=== PATIENT | male | born 1980 | race Caucasian/White ===

== ENCOUNTER 2018-10-28 11:05 | Emergency (ER) | payer SELFPAY ==
[~2018-10-28] VITALS: Ht 185.4 cm; Wt 79.0 kg
[~2018-10-28 11:05] MED LIST: DIPH25CA6; HYDR28CR36
[2018-10-28 11:09] VITALS: BP 175/63; PULSE 102; RESP 18; Ht 185.4 cm; Wt 79.0 kg
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
[2018-10-28] MEDS ORDERED: IBUPROFEN 800 MG TAB PO ONE (13:30)
[2018-10-28] MEDS ORDERED: IBUP-1542 PO (15:28)
== END 2018-10-28 16:02 | disposition home or self-care (01) ==
LOC: FTE 11:05
DX: S80.212A Abrasion, left knee, initial encounter (principal); F17.210 Nicotine dependence, cigarettes, uncomplicated; S60.512A Abrasion of left hand, initial encounter; V13.4XXA Pedal cycle driver injured in collision with car, pick-up truck or van in traffic accident, initial encounter
CPT/HCPCS: 73562